=== PATIENT | male | born 1955 | race Caucasian/White ===

== ENCOUNTER 2022-05-02 11:47 | Emergency (ER) | payer MEDICARE, OTHER, SELFPAY ==
[2022-05-02] VITALS (11 sets, daily range): BP systolic 142–192; BP diastolic 85–98; PULSE 56–91; RESP 16–24; TEMP 36.5; O2SAT 97–99; BMI 24.4
--- NOTE | 2022-05-02 12:23 | DI.RAD.S_ITS ---
PROCEDURE: XR CHEST 1V INDICATIONS: chest pain TECHNIQUE: One view of the chest was acquired. COMPARISON: None. FINDINGS: Surgical changes and devices: None. Lungs and pleura: Lungs are clear. No pleural effusions or pneumothorax. Mediastinum: Mediastinal contours appear normal. Heart size is normal. Bones and chest wall: No suspicious bony lesions. Overlying soft tissues appear unremarkable. IMPRESSION: No acute radiographic abnormality. Dictated by: Brady Munoz M.D. on 05/02/2022 at 12:48 Approved by: Brady Munoz M.D. on 05/02/2022 at 12:48
[2022-05-02] MEDS: ACETAMINOPHEN 325 MG TABLET 650 MG PO (12:51)
--- NOTE | 2022-05-02 12:57 | ED_ITS ---
HPI - General Adult <IVANNA Richard - Last Filed: 05/02/22 15:23> General Chief complaint: Hypertension Stated complaint: headache / htn Time Seen by Provider: 05/02/22 12:22 Source: patient Mode of arrival: Ambulatory History of Present Illness HPI narrative: This is a 67-year-old male without significant medical history who takes 75 mg of losartan daily for hypertension who presents to the emergency department with onset of lightheadedness at 05:00 this morning when he normally wakes up. He states that it was persistent and so he tried to lie down around 06:00 and with this position change he had an intense acute onset of spinning. He states that it it was very uncomfortable so he stood back up and the spinning went away. He denies any chest pain, palpitations, shortness of breath, wheezing but does endorse rhinorrhea, a sore throat and an occasional cough that he is had for the last 2-3 days. He lives on [address], states that he is otherwise healthy, runs for exercise every other day, is a nonsmoker, is not on anticoagulants. Related Data Home Medications Medication Instructions Recorded Confirmed VITAMIN D (Vitamin D3) 1,000 unit PO QDAY ##0 07/06/12 aspirin 81 mg tablet,delayed 81 mg PO QDAY ##0 07/06/12 release atorvastatin 40 mg tablet (Lipitor) 60 mg PO HS ##0 07/06/12 losartan 50 mg tablet (Cozaar) 75 mg PO QDAY ##0 07/06/12 Allergies Allergy/AdvReac Type Severity Reaction Status Date / Time amoxicillin Allergy Rash Verified 05/02/22 12:06 clavulanic acid Allergy Rash Verified 05/02/22 12:06 [From Augmentin] Review of Systems <IVANNA Richard - Last Filed: 05/02/22 15:23> Review of Systems Narrative: Review of systems is negative for acute abnormalities unless otherwise noted in HPI Patient History <IVANNA Richard - Last Filed: 05/02/22 15:23> Social History Smoking Status: Never smoker Smoking Status: Never smoker alcohol intake frequency: a few times a week Substance Use Type: does not use Exam <IVANNA Richard - Last Filed: 05/02/22 15:23> Narrative Exam Narrative: Reviewed vitals signs and nursing notes. General: cooperative, comfortable, in no acute distress, well groomed HEENT: symmetrical facial expressions, moist mucous membranes, rhinorrhea, EOMI, conjunctivae bilaterally is mildly injected, neck is supple without anterior cervical lymphadenopathy Cardiovascular: regular rate and rhythm, S1-S2 no peripheral edema, warm extremities Respiratory: normal effort, able to speak in complete sentences, without wheezing, stridor, or abnormal breath sounds. No retractions or tachypnea. GI: abdomen soft, nontender to palpation, nondistended, without masses, rebound tenderness or exquisite tenderness with exam. MSK: moves all extremities, neurovascularly intact, no weakness, normal tone Skin: brisk capillary refill, without pallor or erythema Neuro: normal speech and cognition, A&O x3, ambulatory, clear speech Psych: mental status is grossly normal, congruent mood, normal affect, pleasant and cooperative Initial Vital Signs Initial Vital Signs: Vital Signs Temperature 97.7 F 05/02/22 12:06 Pulse Rate 71 05/02/22 12:06 Respiratory Rate 18 05/02/22 12:06 Blood Pressure 170/95 H 05/02/22 12:06 Pulse Oximetry 98 05/02/22 12:06 Oxygen Delivery Method 05/02/22 12:06 <Marleni Chamorro DO - Last Filed: 05/03/22 08:47> Initial Vital Signs Initial Vital Signs: Vital Signs Temperature 97.7 F 05/02/22 12:06 Pulse Rate 71 05/02/22 12:06 Respiratory Rate 18 05/02/22 12:06 Blood Pressure 170/95 H 05/02/22 12:06 Pulse Oximetry 98 05/02/22 12:06 Oxygen Delivery Method 05/02/22 12:06 Course <IVANNA Richard - Last Filed: 05/02/22 15:23> Orders Ordered: Discontinued Medications Acetaminophen (Acetaminophen 325 Mg Tablet) 650 mg PO NOW ONE Stop: 05/02/22 12:39 Last Admin: 05/02/22 12:51 Dose: 650 mg Documented By: GIOVANY Sodium Chloride (Normal Saline 0.9%) 1,000 mls @ 1,000 mls/hr IV BOLUS ONE Stop: 05/02/22 13:57 Last Infusion: 05/02/22 14:20 Dose: 0 mls/hr Documented By: Admin: 05/02/22 13:15 Dose: 1,000 mls/hr Documented By: STEFAN Ketorolac Tromethamine (Ketorolac 30 Mg/Ml Vial) 15 mg IV NOW ONE Stop: 05/02/22 14:30 Last Admin: 05/02/22 14:35 Dose: 15 mg Documented By: STEFAN Ondansetron HCl (Ondansetron 4 Mg/2 Ml Inj) 4 mg IV NOW ONE Stop: 05/02/22 14:30 Last Admin: 05/02/22 14:35 Dose: 4 mg Documented By: STEFAN Vital Signs Vital signs: Vital Signs - 8 hr 05/02/22 12:06 05/02/22 12:17 05/02/22 12:19 Temperature 97.7 F Pulse Rate 71 91 H 62 Respiratory Rate 18 21 Blood Pressure 170/95 H Pulse Oximetry 98 99 Oxygen Delivery Method Room Air 05/02/22 12:19 05/02/22 12:30 05/02/22 12:51 Temperature Pulse Rate 70 64 Respiratory Rate 24 Blood Pressure 192/98 H Pulse Oximetry 97 98 Oxygen Delivery Method 05/02/22 12:51 05/02/22 13:00 05/02/22 13:00 Temperature Pulse Rate Respiratory Rate 19 Blood Pressure 157/94 H 152/85 H Pulse Oximetry 97 Oxygen Delivery Method 05/02/22 13:30 05/02/22 13:30 05/02/22 14:00 Temperature Pulse Rate 59 L Respiratory Rate 17 Blood Pressure 142/88 H 156/89 H Pulse Oximetry 97 Oxygen Delivery Method 05/02/22 14:00 05/02/22 14:26 05/02/22 14:26 Temperature Pulse Rate 57 L 61 Respiratory Rate 17 21 Blood Pressure 161/93 H Pulse Oximetry 98 98 Oxygen Delivery Method 05/02/22 14:30 05/02/22 14:30 05/02/22 15:00 Temperature Pulse Rate 62 56 L Respiratory Rate 21 16 Blood Pressure 164/94 H Pulse Oximetry 98 98 Oxygen Delivery Method <Marleni Chamorro DO - Last Filed: 05/03/22 08:47> Orders Ordered: Discontinued Medications Acetaminophen (Acetaminophen 325 Mg Tablet) 650 mg PO NOW ONE Stop: 05/02/22 12:39 Last Admin: 05/02/22 12:51 Dose: 650 mg Documented By: GIOVANY Sodium Chloride (Normal Saline 0.9%) 1,000 mls @ 1,000 mls/hr IV BOLUS ONE Stop: 05/02/22 13:57 Last Infusion: 05/02/22 14:20 Dose: 0 mls/hr Documented By: Admin: 05/02/22 13:15 Dose: 1,000 mls/hr Documented By: STEFAN Ketorolac Tromethamine (Ketorolac 30 Mg/Ml Vial) 15 mg IV NOW ONE Stop: 05/02/22 14:30 Last Admin: 05/02/22 14:35 Dose: 15 mg Documented By: STEFAN Ondansetron HCl (Ondansetron 4 Mg/2 Ml Inj) 4 mg IV NOW ONE Stop: 05/02/22 14:30 Last Admin: 05/02/22 14:35 Dose: 4 mg Documented By: TSEFAN Vital Signs Vital signs: Vital Signs - 8 hr 05/02/22 12:06 05/02/22 12:17 05/02/22 12:19 Temperature 97.7 F Pulse Rate 71 91 H 62 Respiratory Rate 18 21 Blood Pressure 170/95 H Pulse Oximetry 98 99 Oxygen Delivery Method Room Air 05/02/22 12:19 05/02/22 12:30 05/02/22 12:51 Temperature Pulse Rate 70 64 Respiratory Rate 24 Blood Pressure 192/98 H Pulse Oximetry 97 98 Oxygen Delivery Method 05/02/22 12:51 05/02/22 13:00 05/02/22 13:00 Temperature Pulse Rate Respiratory Rate 19 Blood Pressure 157/94 H 152/85 H Pulse Oximetry 97 Oxygen Delivery Method 05/02/22 13:30 05/02/22 13:30 05/02/22 14:00 Temperature Pulse Rate 59 L Respiratory Rate 17 Blood Pressure 142/88 H 156/89 H Pulse Oximetry 97 Oxygen Delivery Method 05/02/22 14:00 05/02/22 14:26 05/02/22 14:26 Temperature Pulse Rate 57 L 61 Respiratory Rate 17 21 Blood Pressure 161/93 H Pulse Oximetry 98 98 Oxygen Delivery Method 05/02/22 14:30 05/02/22 14:30 05/02/22 15:00 Temperature Pulse Rate 62 56 L Respiratory Rate 21 16 Blood Pressure 164/94 H Pulse Oximetry 98 98 Oxygen Delivery Method Medical Decision Making <Kathyamna Lara, [facility] - Last Filed: 05/02/22 15:23> Lab Data Result diagrams: 05/02/22 12:20 05/02/22 12:20 Labs: Lab Results 05/02/22 05/02/22 05/02/22 Range/Units 12:20 12:20 12:20 WBC 12.0 H (4.5-11.0) X10^3/uL RBC 5.43 (4.5-5.9) X10^6/uL Hgb 15.9 (13.5-17.5) g/dL Hct 47.7 (41-53) % MCV 87.7 (80-100) fL MCH 29.2 (26-34) PG MCHC 33.3 (30-36) % RDW 14.6 (11.6-14.8) % Plt Count 806 H (150-400) X10^3/uL Neut % (Auto) 77.9 H (50-75) % Lymph % (Auto) 13.3 L (25-40) % [place] % (Auto) 6.5 (3-14) % Eos % (Auto) 1.7 L (2-4) % Baso % (Auto) 0.6 (0-2) % Neut # (Auto) 9400 H (3339-9202) /uL Lymph # (Auto) 1600 (2640-1475) /uL [place] # (Auto) 800 (0-900) /uL Eos # (Auto) 200 (0-450) /uL Baso # (Auto) 100 (0-100) /uL RBC Morphology Normal morphology D-Dimer 466 (<500) ng/ml Sodium 144 (137-145) mmol/L Potassium 4.1 (3.4-5.1) mmol/L Chloride 103 (98-107) mmol/L Carbon Dioxide 33 H (22-32) mmol/L BUN 21 H (9-20) mg/dL Creatinine 0.69 (0.66-1.25) mg/dL Estimated GFR > 60 (>60) mL/min BUN/Creatinine Ratio 30.4 H (6-22) Glucose 104 (80-110) mg/dL Calcium 10.1 (8.4-10.2) mg/dL Total Bilirubin 0.8 (0.2-1.3) mg/dL AST 37 (17-59) IU/L ALT 40 (<50) IU/L Alkaline Phosphatase 89 (38-126) U/L Total Creatine Kinase 88 (55-170) U/L CK-MB (CK-2) TNP CK-MB (CK-2) Rel Index TNP Troponin I < 0.012 (0.01-0.034) ng/mL NT-Pro-B Natriuret Pep 90 (<125) pg/mL Total Protein 7.7 (6.3-8.2) g/dL Albumin 4.7 (3.5-5.0) g/dL Globulin 3.0 (1.7-4.1) g/dL Albumin/Globulin Ratio 1.6 (1.0-2.8) Lipase 97 (23-300) U/L Urine RBC (0-5/HPF) Urine WBC (0-5/HPF) Urine Bacteria (None) Ur Culture Indicated? Micro UA Comment SARS-CoV-2 (PCR) (Negative) Influenza A (RT-PCR) (NEGATIVE) Influenza B (RT-PCR) (NEGATIVE) RSV (PCR) (Negative) 05/02/22 05/02/22 Range/Units 13:02 14:15 WBC (4.5-11.0) X10^3/uL RBC (4.5-5.9) X10^6/uL Hgb (13.5-17.5) g/dL Hct (41-53) % MCV (80-100) fL MCH (26-34) PG MCHC (30-36) % RDW (11.6-14.8) % Plt Count (150-400) X10^3/uL Neut % (Auto) (50-75) % Lymph % (Auto) (25-40) % [place] % (Auto) (3-14) % Eos % (Auto) (2-4) % Baso % (Auto) (0-2) % Neut # (Auto) (0252-6517) /uL Lymph # (Auto) (6819-4398) /uL [place] # (Auto) (0-900) /uL Eos # (Auto) (0-450) /uL Baso # (Auto) (0-100) /uL RBC Morphology D-Dimer (<500) ng/ml Sodium (137-145) mmol/L Potassium (3.4-5.1) mmol/L Chloride (98-107) mmol/L Carbon Dioxide (22-32) mmol/L BUN (9-20) mg/dL Creatinine (0.66-1.25) mg/dL Estimated GFR (>60) mL/min BUN/Creatinine Ratio (6-22) Glucose (80-110) mg/dL Calcium (8.4-10.2) mg/dL Total Bilirubin (0.2-1.3) mg/dL AST (17-59) IU/L ALT (<50) IU/L Alkaline Phosphatase (38-126) U/L Total Creatine Kinase (55-170) U/L CK-MB (CK-2) CK-MB (CK-2) Rel Index Troponin I (0.01-0.034) ng/mL NT-Pro-B Natriuret Pep (<125) pg/mL Total Protein (6.3-8.2) g/dL Albumin (3.5-5.0) g/dL Globulin (1.7-4.1) g/dL Albumin/Globulin Ratio (1.0-2.8) Lipase (23-300) U/L Urine RBC None seen (0-5/HPF) Urine WBC None seen (0-5/HPF) Urine Bacteria None seen (None) Ur Culture Indicated? Cult not indicated Micro UA Comment Microscopic normal SARS-CoV-2 (PCR) Negative (Negative) Influenza A (RT-PCR) Flu a negative (NEGATIVE) Influenza B (RT-PCR) Flu b negative (NEGATIVE) RSV (PCR) Negative (Negative) Urine Dip Bedside Urine Glucose Negative Bedside Urine Bilirubin - Negative Bedside Urine Ketone - Negative Urine Specific Dave[place] 1.020 Bedside Urine Occult Blood - Negative Bedside Urine pH 6.5 Bedside Urine Protein - Negative Bedside Urine Urobilinogen - Negative Bedside Urine Nitrite - Negative Bedside Urine Leukocytes - Negative Esterase Point of care testing: Urine Dip Bedside Urine Glucose Negative Bedside Urine Bilirubin - Negative Bedside Urine Ketone - Negative Urine Specific [place] 1.020 Bedside Urine Occult Blood - Negative Bedside Urine pH 6.5 Bedside Urine Protein - Negative Bedside Urine Urobilinogen - Negative Bedside Urine Nitrite - Negative Bedside Urine Leukocytes - Negative Esterase Imaging Data Chest x-ray: Radiologist's Impression: PROCEDURE:? XR CHEST 1V ? INDICATIONS:? chest pain ? TECHNIQUE:? One view of the chest was acquired.? ? COMPARISON:? None. ? FINDINGS:? ? Surgical changes and devices:? None.? ? Lungs and pleura:? Lungs are clear.? No pleural effusions or pneumothorax.? ? Mediastinum:? Mediastinal contours appear normal.? Heart size is normal.? ? Bones and chest wall:? No suspicious bony lesions.? Overlying soft tissues appear unremarkable.? ? IMPRESSION:? No acute radiographic abnormality. ? ? Dictated by: Brady Munoz M.D. on 05/02/2022 at 12:48 ? ? Approved by: Brady Munoz M.D. on 05/02/2022 at 12:48 ? ECG Data Interpretation: EKG independently reviewed by Dr Chamorro sinus bradycardia at 59 bpm with left axis and normal intervals. No STEMI, ST segment changes, arrhythmia, or acute ischemic changes. MDM Narrative Medical decision making narrative: This is a pleasant 67-year-old gentleman with history of hypertension who takes 75 mg of losartan daily, 60 mg of atorvastatin in 81 mg of aspirin hand presents to the emergency department for onset of lightheadedness and dizziness this morning at 05:00 when he woke up. He had exacerbation his symptoms with attempting to lie down, his symptoms resolved when he stood back up. States that he went on a road trip yesterday was in the car for long period of time. COVID, influenza and RSV PCR were all negative, chest x-ray is without any acute cardiopulmonary abnormalities, troponin of 0.012, BNP of 90, lipase of 97, mild leukocytosis of 12.0 without anemia, thrombocytosis with a platelet count of 806 with a decreased lymphocytic percentage. D-dimer is 466, no electrolyte abnormalities. Suspect this is most likely a viral illness causing his symptoms. Recommended Zyrtec for rhinorrhea and rhinitis. Patient states that his platelet count is typically 750, he is had this since 2000 with unknown trigger. UA is negative for infection Patient was given Tylenol early on in his emergency department visit, states that it helped his headache mildly but it did, he had ongoing headache, gave him ketorolac, Zofran, 1 L of IV fluid and patient's headache improved. His EKGs without any ST changes, arrhythmia, shows a leftward axis with sinus bradycardia to normal sinus rhythm without ST changes or ischemic changes. CT head was obtained since patient was hypertensive initially with ongoing left- sided headache, CT was negative for acute intracranial abnormality. Headache considerations include, but not limited to: Subarachnoid hemorrhage, but unlikely as patient denies sudden onset of pain, not worst of life, or neck pain Meningitis considered, but thought unlikely given lack of Brudzinski's, Kernig's sign, altered mental status or fever, patient's neck is supple. Giant cell arteritis considered, but thought unlikely given lack of unilateral findings, pain in bahai, vision change HTN Emergency considered, but thought unlikely. Other serious diagnoses considered unlikely given lack of red flag findings such as sudden onset, increasing frequency, immunocompromise, systemic signs (fever, chills, stiff neck, or rash), focal neurologic findings, trauma, blood thinners, etc. Patient is appropriate and amenable to discharge home. Vital signs are stable on repeat examination is unremarkable. Patient has been informed of results. Patient has been given strict return to ER precautions for any new or worsening symptoms. Patient understands to follow up closely with outpatient providers as instructed. Patient understands plan and agrees to discharge home. All questions and concerns answered at this time. <Marleni Chamorro, DO - Last Filed: 05/03/22 08:47> Lab Data Labs: Lab Results 05/02/22 05/02/22 05/02/22 Range/Units 12:20 12:20 12:20 WBC 12.0 H (4.5-11.0) X10^3/uL RBC 5.43 (4.5-5.9) X10^6/uL Hgb 15.9 (13.5-17.5) g/dL Hct 47.7 (41-53) % MCV 87.7 (80-100) fL MCH 29.2 (26-34) PG MCHC 33.3 (30-36) % RDW 14.6 (11.6-14.8) % Plt Count 806 H (150-400) X10^3/uL Neut % (Auto) 77.9 H (50-75) % Lymph % (Auto) 13.3 L (25-40) % [place] % (Auto) 6.5 (3-14) % Eos % (Auto) 1.7 L (2-4) % Baso % (Auto) 0.6 (0-2) % Neut # (Auto) 9400 H (8353-8250) /uL Lymph # (Auto) 1600 (8719-6944) /uL [place] # (Auto) 800 (0-900) /uL Eos # (Auto) 200 (0-450) /uL Baso # (Auto) 100 (0-100) /uL RBC Morphology Normal morphology D-Dimer 466 (<500) ng/ml Sodium 144 (137-145) mmol/L Potassium 4.1 (3.4-5.1) mmol/L Chloride 103 (98-107) mmol/L Carbon Dioxide 33 H (22-32) mmol/L BUN 21 H (9-20) mg/dL Creatinine 0.69 (0.66-1.25) mg/dL Estimated GFR > 60 (>60) mL/min BUN/Creatinine Ratio 30.4 H (6-22) Glucose 104 (80-110) mg/dL Calcium 10.1 (8.4-10.2) mg/dL Total Bilirubin 0.8 (0.2-1.3) mg/dL AST 37 (17-59) IU/L ALT 40 (<50) IU/L Alkaline Phosphatase 89 (38-126) U/L Total Creatine Kinase 88 (55-170) U/L CK-MB (CK-2) TNP CK-MB (CK-2) Rel Index TNP Troponin I < 0.012 (0.01-0.034) ng/mL NT-Pro-B Natriuret Pep 90 (<125) pg/mL Total Protein 7.7 (6.3-8.2) g/dL Albumin 4.7 (3.5-5.0) g/dL Globulin 3.0 (1.7-4.1) g/dL Albumin/Globulin Ratio 1.6 (1.0-2.8) Lipase 97 (23-300) U/L Urine RBC (0-5/HPF) Urine WBC (0-5/HPF) Urine Bacteria (None) Ur Culture Indicated? Micro UA Comment SARS-CoV-2 (PCR) (Negative) Influenza A (RT-PCR) (NEGATIVE) Influenza B (RT-PCR) (NEGATIVE) RSV (PCR) (Negative) 05/02/22 05/02/22 Range/Units 13:02 14:15 WBC (4.5-11.0) X10^3/uL RBC (4.5-5.9) X10^6/uL Hgb (13.5-17.5) g/dL Hct (41-53) % MCV (80-100) fL MCH (26-34) PG MCHC (30-36) % RDW (11.6-14.8) % Plt Count (150-400) X10^3/uL Neut % (Auto) (50-75) % Lymph % (Auto) (25-40) % [place] % (Auto) (3-14) % Eos % (Auto) (2-4) % Baso % (Auto) (0-2) % Neut # (Auto) (3192-0186) /uL Lymph # (Auto) (0004-1684) /uL [place] # (Auto) (0-900) /uL Eos # (Auto) (0-450) /uL Baso # (Auto) (0-100) /uL RBC Morphology D-Dimer (<500) ng/ml Sodium (137-145) mmol/L Potassium (3.4-5.1) mmol/L Chloride (98-107) mmol/L Carbon Dioxide (22-32) mmol/L BUN (9-20) mg/dL Creatinine (0.66-1.25) mg/dL Estimated GFR (>60) mL/min BUN/Creatinine Ratio (6-22) Glucose (80-110) mg/dL Calcium (8.4-10.2) mg/dL Total Bilirubin (0.2-1.3) mg/dL AST (17-59) IU/L ALT (<50) IU/L Alkaline Phosphatase (38-126) U/L Total Creatine Kinase (55-170) U/L CK-MB (CK-2) CK-MB (CK-2) Rel Index Troponin I (0.01-0.034) ng/mL NT-Pro-B Natriuret Pep (<125) pg/mL Total Protein (6.3-8.2) g/dL Albumin (3.5-5.0) g/dL Globulin (1.7-4.1) g/dL Albumin/Globulin Ratio (1.0-2.8) Lipase (23-300) U/L Urine RBC None seen (0-5/HPF) Urine WBC None seen (0-5/HPF) Urine Bacteria None seen (None) Ur Culture Indicated? Cult not indicated Micro UA Comment Microscopic normal SARS-CoV-2 (PCR) Negative (Negative) Influenza A (RT-PCR) Flu a negative (NEGATIVE) Influenza B (RT-PCR) Flu b negative (NEGATIVE) RSV (PCR) Negative (Negative) Urine Dip Bedside Urine Glucose Negative Bedside Urine Bilirubin - Negative Bedside Urine Ketone - Negative Urine Specific [place] 1.020 Bedside Urine Occult Blood - Negative Bedside Urine pH 6.5 Bedside Urine Protein - Negative Bedside Urine Urobilinogen - Negative Bedside Urine Nitrite - Negative Bedside Urine Leukocytes - Negative Esterase Point of care testing: Urine Dip Bedside Urine Glucose Negative Bedside Urine Bilirubin - Negative Bedside Urine Ketone - Negative Urine Specific [place] 1.020 Bedside Urine Occult Blood - Negative Bedside Urine pH 6.5 Bedside Urine Protein - Negative Bedside Urine Urobilinogen - Negative Bedside Urine Nitrite - Negative Bedside Urine Leukocytes - Negative Esterase ECG Data Interpretation: EKG independently reviewed by Dr Chamorro sinus bradycardia at 59 bpm with left axis and normal intervals. No STEMI, ST segment changes, arrhythmia, or acute ischemic changes. Ashtyn-sinus rhythm rate 50 him here interval 170 QRS [address] changes no priors to compare Discharge Plan Departure Patient Disposition: Home Clinical Impression: Postural dizziness, Upper respiratory infection, viral, Thrombocytosis Instructions: Benign Paroxysmal Positional Vertigo, DI for Viral Upper Respiratory Infection -- Adult, Dizziness, Nonvertigo Activity Restrictions/Additional Instructions: *You have been diagnosed with postural dizziness, and lightheadedness with a mild headache. I have a strong suspicion this was brought on by motion changes either due to your middle ear or hydration status. Your workup today is reassuring that this does not appear to be a cardiac cause, your respiratory pa terrence was negative for influenza, COVID, and RSV. Your chest x-ray does not show any patchy areas of pneumonia or fluid buildup in your lungs. Your EKG does not show any signs of cardiac stress, your heart failure lab value was normal, no signs of a blood clot, a mildly elevated white blood cell count with a normal for you platelet count of a 106. No electrolyte abnormalities, no elevation to your kidney function lab or liver enzymes. Your urine was negative for infection as well. Please start taking Zyrtec at night to help manage any congestion or middle ear effusion. Please stay hydrated, change positions slowly, schedule a follow-up appointment with Dr. Kerr at your soonest convenience, continue on your regular dose of losartan. If you have sustained upper blood pressure numbers over 160 every day on this dose, please follow-up with her about adding a 2nd medication or increasing this dose. I hope you feel better soon, you might have a viral upper respiratory infection. Please support your symptoms with Tylenol and ibuprofen, return for any worsening symptoms of concern. Zyrtec is also called cetirizine, it is available [id number], take 10-[address] is negative for any acute intracranial abnormalities, including hemorrhage. *Please continue to take your regular medications as directed. [ ] New medication prescriptions sent to your pharmacy: [ ] [ ] New medication written as a paper prescription [x ] No new medications given *Please follow up with your primary care provider in 2-3 days, call for an appointment. Let them know you were seen in the Emergency Department and that we asked that you be seen for follow-up. We will electronically transmit a record of today's note if your PCP is in our system *If you do not have a primary care provider please contact [phone] to establish care with one of [facility] primary care providers. *Return to Emergency Department if you should have any new, worsening, or concerning symptoms, such as [fever greater than 101F, chills, worsening pain, persistent vomiting or other bothersome symptoms]. Prescriptions: No Action losartan [Cozaar] 50 MG tablet 75 mg PO QDAY Qty: 0 atorvastatin [Lipitor] 40 MG tablet 60 mg PO HS Qty: 0 aspirin 81 MG tablet,delayed release (DR/EC) 81 mg PO QDAY Qty: 0 VITAMIN D (Vitamin D3) 1,000 unit PO QDAY Qty: 0 Referrals: Virginia Kerr MD [Non-Staff] - As soon as possible Visit Report Forms: Patient Portal/API <Marleni Chamorro DO - Last Filed: 05/03/22 08:47> Cosign ED Attending Costruongature Attestation: I was immediately available in the department for consultation. Documentation has been reviewed. I agree with assessment and plan.
[2022-05-02 13:03] LABS: Add Manual Diff / Slide Review NO; Basophils Absolute Auto 100 /uL (0-100); Basophils Percent Auto 0.6 % (0-2); Eosinophils Absolute Auto 200 /uL (0-450); Eosinophils Percent Auto 1.7 % (2-4); Hematocrit 47.7 % (41-53); Hemoglobin 15.9 g/dL (13.5-17.5); Lymphocytes Absolute Auto 1600 /uL (1100-4500); Lymphocytes Percent Auto 13.3 % (25-40); Mean Corpuscular HGB Conc 33.3 % (30-36); Mean Corpuscular Hemoglobin 29.2 PG (26-34); Mean Corpuscular Volume 87.7 fL (80-100); Monocytes Absolute Auto 800 /uL (0-900); Monocytes Percent Auto 6.5 % (3-14); Neutrophils Absolute Auto 9400 /uL (1500-7000); Neutrophils Percent Auto 77.9 % (50-75); Platelet Count 806 X10^3/uL (150-400); Red Blood Cell Count 5.43 X10^6/uL (4.5-5.9); Red Cell Distribution Width 14.6 % (11.6-14.8)
[2022-05-02 13:10] LABS: D Dimer 466 ng/ml (<500)
[2022-05-02 13:15] LABS: Alanine Aminotransferase 40 IU/L (<50); Albumin 4.7 g/dL (3.5-5.0); Albumin Globulin Ratio 1.6 (1.0-2.8); Alkaline Phosphatase 89 U/L (38-126); Aspartate Aminotransferase 37 IU/L (17-59); BUN Creatinine Ratio 30.4 (6-22); Bilirubin Total 0.8 mg/dL (0.2-1.3); Blood Urea Nitrogen 21 mg/dL (9-20); Calcium 10.1 mg/dL (8.4-10.2); Carbon Dioxide 33 mmol/L (22-32); Chloride 103 mmol/L (98-107); Creatine Kinase 88 U/L (55-170); Estimated Glomerular Filt Rate > 60 mL/min (>60); Glucose 104 mg/dL (80-110); HEMOLYSIS 16 (0-50); Lipase 97 U/L (23-300); Potassium 4.1 mmol/L (3.4-5.1); Sodium 144 mmol/L (137-145); Total Protein 7.7 g/dL (6.3-8.2)
[2022-05-02] MEDS: SODIUM CHLORIDE 0.9% 1,000 ML 1000 ML IV (13:15)
[2022-05-02 13:27] LABS: NT-proBNP (BNP-Adult 18+) 90 pg/mL (<125); Troponin I < 0.012 ng/mL (0.01-0.034)
[2022-05-02 13:46] LABS: Influenza A - CEPHEID Flu A NEGATIVE (NEGATIVE); Influenza B - CEPHEID Flu B NEGATIVE (NEGATIVE); Respiratory Syncytial Virus Negative (Negative)
[2022-05-02 13:47] LABS: RBC Morphology Normal Morphology
[2022-05-02 14:03] LABS: COVID-19 CEPHEID 4-PLEX PCR Negative (Negative)
[2022-05-02 14:24] LABS: Bacteria Urine None Seen; Culture Indicated Urine Cult Not Indicated; RBC Urine None Seen (0-5/HPF); Urine Comments Microscopic Normal; WBC Urine None Seen (0-5/HPF)
--- NOTE | 2022-05-02 14:29 | DI.CT.S_ITS ---
PROCEDURE: CT HEAD/BRAIN WO CON INDICATIONS: left sided headache, hypertension TECHNIQUE: Noncontrast 4.5 mm thick angled axial sections acquired from the foramen magnum to the vertex, with coronal and sagittal reformats. For radiation dose reduction, the following was used: automated exposure control, adjustment of mA and/or kV according to patient size. COMPARISON: None. FINDINGS: Image quality: Excellent. CSF spaces: Basal cisterns are patent. No extra-axial fluid collections. Ventricles are normal in size and shape. Brain: No midline shift. No intracranial masses or hemorrhage. Poon-white matter interface is normal. Skull and face: Calvarium and visualized facial bones are intact, without suspicious lesions. Sinuses: Visualized sinuses and mastoids are clear. IMPRESSION: No trauma found. Dictated by: Anthony Malloy M.D. on 05/02/2022 at 15:01 Approved by: Anthony Malloy M.D. on 05/02/2022 at 15:02
[2022-05-02] MEDS: KETOROLAC 30 MG/ML VIAL 15 MG IV (14:35)
[2022-05-02] MEDS: ONDANSETRON 4 MG/2 ML INJ IV (14:35)
== END 2022-05-02 15:29 | disposition home or self-care (01) ==
PROVIDERS: Emergency Provider Nurse Practitioner Critical Care Medicine
DX: R42 Dizziness and giddiness (principal); J06.9 Acute upper respiratory infection, unspecified; D75.839 Thrombocytosis, unspecified; R07.9 Chest pain, unspecified; Z20.822 Contact with and (suspected) exposure to COVID-19
CPT/HCPCS: 0241U; 36415; 70450; 71045; 80053; 81003; 81015; 82550; 83690; 83880; 84484; 85025; 85379; 93005; 96361; 96374; 96375; 99284; J1885; J2405